=== PATIENT | male | born 1995 | race Caucasian/White ===

== ENCOUNTER 2018-04-11 08:35 | Emergency (ER) | payer BC ==
[2018-04-11] MEDS ORDERED: LIDOCAINE 1% (MDV) 20 ML INJ SC (09:30)
[2018-04-11] MEDS: HYDROCODONE/APAP (5/325) TAB PO (09:30)
[2018-04-11] MEDS: ONDANSETRON (ODT) 4 MG TAB ODT (09:30)
[2018-04-11] MEDS: LIDOCAINE 1% (MPF) 5 ML VIAL SC (09:35)
== END 2018-04-11 10:26 | disposition home or self-care (01) ==
LOC: FTE 08:35
DX: K04.7 Periapical abscess without sinus (principal)
CPT/HCPCS: 41800; 99283-25